=== PATIENT | male | born 1940 | race Caucasian/White ===

== ENCOUNTER 2019-03-13 13:02 | Emergency (ER) | payer MEDICARE, BC ==
[~2019-03-13] VITALS: Ht 177.8 cm; Wt 77.0 kg
[~2019-03-13 13:02] MED LIST: ATOR10TA PO; BENA1TAB2 PO; CEPH-568 PO; COR12 PO; FURO-152 PO; HYDR-3511 PO; KV10 IV; VITA1CAP PO; WARF2TAB57 PO
[2019-03-13 14:21] LABS: BASOPHILS % 0.3 % (0.0-2.0); EOSINOPHILS % 1.1 % (0.0-5.0); HEMATOCRIT. 43.3 % (42.0-52.0); HEMOGLOBIN. 14.2 g/dL (14.0-18.0); LYMPHOCYTES % 10.1 % (20.0-50.0); MEAN CORPUSCULAR HEMOGLOBIN 30.8 pg (28.0-32.0); MEAN CORPUSCULAR VOLUME 93.8 fL (80.0-94.0); MONOCYTES % 5.1 % (2.0-8.0); NEUTROPHILS % 83.4 % (40.0-76.0); PLATELET 126 x1000/uL (130-400); RED BLOOD CELL COUNT 4.62 mill/uL (4.7-6.1); RED CELL DISTRIBUTION WIDTH 13.7 % (11.6-14.6)
[2019-03-13 14:27] LABS: CHLORIDE 107 mEq/L (98-107)
[2019-03-13 14:28] LABS: INR 1.8
[2019-03-13] MEDS ORDERED: IOHEXOL-350 100 ML BOTTLE ONE (16:12)
[2019-03-13] MEDS ORDERED: HEPARIN 5000 UNITS/ML VIAL IV ONE (16:15)
[2019-03-13] MEDS ORDERED: AZITHROMYCIN 500 MG in DEXT 5% WATER 250 ML IV ONE (16:30)
[2019-03-13] MEDS ORDERED: MORPHINE SULFATE 4 MG/ML CPJ (NOT FOR IM USE) IV ONE (16:30)
[2019-03-13] MEDS ORDERED: CEFTRIAXONE 1 G PREMIX 50 ML IV ONE (16:30)
[2019-03-13] MEDS ORDERED: HEPARIN 25,000 UNITS PREMIX 500 ML IV SCH ×2 (16:45→17:00)
[2019-03-13 22:44] VITALS: BP 141/84
== END 2019-03-13 23:52 | disposition short-term general hospital (02) ==
LOC: ER 13:21
DX: I74.3 Embolism and thrombosis of arteries of the lower extremities (principal); E78.00 Pure hypercholesterolemia, unspecified; I10 Essential (primary) hypertension; Z95.0 Presence of cardiac pacemaker; Z79.899 Other long term (current) drug therapy
CPT/HCPCS: 36415; 71045; 73206; 80053; 84484; 85025; 85610; 85730; 87040; 93005; 96365; 96367; 96368; 96375; 99285; J0456; J0696; J1644; J2270; J7060; Q9967